=== PATIENT | female | born 1955 ===

== ENCOUNTER 2023-10-25 06:15 | Day surgery (SDC) | payer OTHER, SELFPAY ==
[2023-10-25 07:01] VITALS: BMI 28.5
[2023-10-25 07:10] VITALS: BP 180/97
[2023-10-25 07:17] VITALS: BMI 28.5
[2023-10-25 08:58] VITALS: BP 120/66
[2023-10-25 09:05] VITALS: BP 128/71
[2023-10-25 09:20] VITALS: BP 138/74
== END 2023-10-25 09:30 | disposition home or self-care (01) ==
LOC: GI 06:15
PROVIDERS: ATTENDING PHYSICIAN Internal Medicine Gastroenterology
DX: K31.7 Polyp of stomach and duodenum (principal); K22.70 Barrett's esophagus without dysplasia; D13.2 Benign neoplasm of duodenum
CPT/HCPCS: 43251; 88305

== ENCOUNTER → 2024-06-20 06:18 | Day surgery (SDC) | payer OTHER, SELFPAY | LOC: GI 06:18 | PROVIDERS: ATTENDING PHYSICIAN Internal Medicine Gastroenterology | DX: Z12.11 Encounter for screening for malignant neoplasm of colon (principal); K63.5 Polyp of colon; K62.89 Other specified diseases of anus and rectum; K64.8 Other hemorrhoids; K22.89 Other specified disease of esophagus; K44.9 Diaphragmatic hernia without obstruction or gangrene; K31.7 Polyp of stomach and duodenum; Z13.810 Encounter for screening for upper gastrointestinal disorder; Z87.19 Personal history of other diseases of the digestive system; Z80.0 Family history of malignant neoplasm of digestive organs | CPT/HCPCS: 45385; 43239; 88305 ==

== ENCOUNTER 2025-06-12 06:23 | Day surgery (SDC) | payer OTHER, SELFPAY | END 2025-06-12 12:13 | disposition home or self-care (01) | LOC: GI 06:23 | PROVIDERS: ATTENDING PHYSICIAN Internal Medicine Gastroenterology | DX: R12 Heartburn (principal); K44.9 Diaphragmatic hernia without obstruction or gangrene; K31.7 Polyp of stomach and duodenum; K90.0 Celiac disease; K22.70 Barrett's esophagus without dysplasia; K31.89 Other diseases of stomach and duodenum | CPT/HCPCS: 43239; 88305 ==